=== PATIENT | female | born 1980 | race Two or more races ===

== ENCOUNTER 2017-10-06 01:57 | Emergency (ER) | payer OTHER ==
[2017-10-06 03:08] VITALS: TEMP 98.1
--- NOTE | 2017-10-06 03:13 | EDPHY ---
H & P Time Seen by Provider: 10/06/17 03:03 Source: Patient - Personal History Tetanus Vaccine Date: 2013 - Medical/Surgical History Hx Asthma: No Hx Chronic Respiratory Disease: No Hx Diabetes: No Hx Cardiac Disease: No Hx Renal Disease: No Hx Cirrhosis: No Hx Alcoholism: No Hx HIV/AIDS: No Hx Splenectomy or Spleen Trauma: No Other PMH: sinus surgery - Social History Smoking Status: Never smoked Allergies/Adverse Reactions: Sulfa (Sulfonamide Antibiotics) Allergy (Verified 04/22/16 10:09) Home Medications: Medication Instructions Recorded Flonase Nasal [place] 04/22/16 [facility] 04/22/16
--- NOTE | 2017-10-06 03:18 | EDPHY ---
H & P Time Seen by Provider: 10/06/17 03:03 HPI/ROS: Chief complaint: Sore throat, awoke with a sense of throat closing off HPI: 37-year-old previously healthy female who arrives with 4 days worth of sore throat. It began when the arrived home from a unexpected trip back to [place] for a family . There is no known exposure with any particular illness while EN route or there however, she notes that it has been a stressful week. Nonetheless, it really felt like a mild URI going on. She had a fullness in her ears without any change in her hearing. She also noted a sense of sore throat and difficulty with swallowing intensifying pain. She had some swollen glands and perhaps a fever and she had an episode of sweating some 2 nights ago. There has been minimal if any cough. She has had no body aches to speak of. She did not get the influenza vaccine this past fall due to an egg allergy. Her who was on the trip has also had some mild URI symptomatology The came in the wee hours of the morning as she woke up from a sound sleep quite a bit worse having a sense is that her throat was closing off and was worried. Upon arrival that had markedly improved as she was arriving here. Of note, is at all times she was able to phonate and talk and her voice was normal ROS: Constitutional - no fevers or chills. Eyes - no discharge, or injection ENT - no earache, change in hearing, see above regarding his throat symptomatology Respiratory - No Shortness of breath, phlegm, wheezing or pleuritic chest pain. Musculoskeletal - no joint or muscle pain. Integument - no rashes. Neurological - no headache, numbness, tingling, or paresthesias. No focal motor weakness. Immunological - see above regarding anterior neck adenopathy 10 point ROS otherwise negative Smoking Status: Never smoked Physical Exam: Gen: Well developed, well nourished. Nontoxic. afebrile VSS. Anxious, though only somewhat more so than most given her presenting symptoms at home. She herself notes that she is able to internally calm herself down now that she is here. She phonates well and is able to handle her secretions and speaks in full sentences without shortness of breath HEENT: Normocephalic. Ears: TMs are clear. Hearing normal. Eyes: PERRL. No conjunctival injection or pallor. no jaundice. Nose: No nasal discharge. Sinuses are nontender. Throat: Membranes are moist. Oropharynx is erythematous posteriorly however there is no tonsillar edema or exudate and there is also no fullness to the hypopharynx. Normal phonation. Neck: Trachea is in the ML. No laryngeal tenderness. Mild bilateral adenopathy anteriorly. Lungs: Good air entry into both lungs. No rales rhonchi or wheezes. No air hunger. No respiratory distress. Skin: Good color, without pallor. There is no diaphoresis. Skin is warm and dry , without diaphoresis. Intact without rashes Constitutional: Initial Vital Signs Temperature (C) 36.7 C 10/06/17 03:05 Heart Rate 90 10/06/17 03:05 Respiratory Rate 20 10/06/17 03:05 Blood Pressure 147/101 H 10/06/17 03:05 O2 Sat (%) 98 10/06/17 03:05 O2 Delivery Mode Room Air Allergies/Adverse Reactions: Sulfa (Sulfonamide Antibiotics) Allergy (Verified 04/22/16 10:09) Home Medications: Medication Instructions Recorded Flonase Nasal [place] 04/22/16 [facility] 04/22/16 Medical Decision Making ED Course/Re-evaluation: She seems to be settling down nicely. She clearly has evidence of a sore throat on clinical exam by way of the erythema in the posterior pharynx. I have offered her Ativan as her legs seem to be somewhat little jittery at home with a sense of throat closing. However there is no signs of an allergy component to this illness. She has declined the Ativan for now. Strep swab taken by me. Strep result came back. Findings reviewed by me as well as patient re-examined and discussed lab results. Differential Diagnosis: Diagnostic considerations include, but are not limited to, the following: URI, sinusitis, pharyngitis, otitis media, pneumonia, allergy, influenza, strep throat. Departure - Departure Disposition: Home, Routine, Self-Care Clinical Impression: Viral URI Condition: Good Instructions: Upper Respiratory Infection (DC) Additional Instructions: Usual treatments for the sore throat such as Tylenol or lozenges should help. You will be notified tomorrow if the strep final result is indeed positive. No news, is good news. Referrals: Patient,NotPresent [Primary Care Provider] - As per Instructions
[2017-10-06 03:49] VITALS: BP 124/90; PULSE 71; RESP 16; O2SAT 96
== END 2017-10-06 03:43 | disposition home or self-care (01) ==
LOC: CED 01:57
DX: J06.9 Acute upper respiratory infection, unspecified (principal)
CPT/HCPCS: 87880-PO